=== PATIENT | female | born 2000 | race Caucasian/White ===

== ENCOUNTER → 2022-12-02 | Outpatient (CLI) | payer BC, OTHER ==
--- NOTE | 2022-12-02 14:10 | Diagnostic Imaging Report ---
INDICATION: Ankle pain. COMPARISON: None available TECHNIQUE: 3 radiographs of the right ankle dated 12/02/2022. FINDINGS: No acute fracture or dislocation. No destructive osseous process. The talar dome is unremarkable. Ankle mortise is symmetric. Soft tissue swelling is noted about the ankle, particularly laterally. No suspicious radiopaque foreign body. No evidence of tarsal coalition. No calcaneal enthesophytes. IMPRESSION: No acute osseous abnormality with soft tissue swelling about the ankle, particularly laterally. Report given to nurse (Astrid) at 2:10 PM 12/02/2022/cb Dictated by: Dictated on workstation # [id number]
== END ==
LOC: RAD 13:39
PROVIDERS: ATTEND Internal Medicine
DX: S93.401A Sprain of unspecified ligament of right ankle, initial encounter (principal); X58.XXXA Exposure to other specified factors, initial encounter
CPT/HCPCS: 73610